=== PATIENT | female | born 1950 | race Hispanic/Latino ===

== ENCOUNTER 2021-09-14 15:52 | Emergency (ER) | payer OTHER, MEDICARE ==
[~2021-09-14] VITALS: Ht 147.3 cm; Wt 70.3 kg
[2021-09-14] MEDS ORDERED: ACETAMINOPHEN WITH CODEINE 1 TAB TAB PO ONE (19:15)
[2021-09-14] MEDS ORDERED: NIRM1TAB PO (19:22)
[2021-09-14] MEDS ORDERED: D-ME1POW16 PO (19:22)
[2021-09-14 19:38] VITALS: BP 139/75
== END 2021-09-14 19:40 | disposition home or self-care (01) ==
LOC: EDH 15:52
DX: U07.1 COVID-19 (principal); J06.9 Acute upper respiratory infection, unspecified; E11.9 Type 2 diabetes mellitus without complications
CPT/HCPCS: 71045; 87635; 99284; C9803

== ENCOUNTER → 2022-06-24 | Outpatient (CLI) | payer OTHER, MEDICARE ==
[~2022-06-24] MED LIST: D-ME1POW16 PO; NIRM1TAB PO
[2022-06-24 12:39] LABS: ALBUMIN 3.7 g/dL (3.5-5.0); CREATININE 1.5 mg/dL (0.5-1.5); POTASSIUM 4.2 mmol/L (3.5-5.1); TOTAL PROTEIN, SERUM 8.9 g/dL (6.0-8.3)
== END | disposition home or self-care (01) ==
LOC: LAB 11:33
PROVIDERS: ATTEND Student in an Organized Health Care Education/Training Program
DX: R07.9 Chest pain, unspecified (principal)
CPT/HCPCS: 36415; 80053

== ENCOUNTER → 2022-09-20 | Outpatient (CLI) | payer OTHER, MEDICARE ==
[~2022-09-20] MED LIST changes: +ALBU6.7H14 IH
[2022-09-20 12:47] LABS: CREATININE 1.1 mg/dL (0.5-1.5); POTASSIUM 4.2 mmol/L (3.5-5.1)
== END | disposition home or self-care (01) ==
LOC: LAB 08:29
PROVIDERS: ATTEND Student in an Organized Health Care Education/Training Program
DX: I10 Essential (primary) hypertension (principal)
CPT/HCPCS: 36415; 80048

== ENCOUNTER → 2022-09-23 | Outpatient (CLI) | payer OTHER, MEDICARE ==
[~2022-09-23] MED LIST changes: +IOHEXOL 350 MG/ML 100ML INFUS..BTL IV ONE; +METOPROLOL TARTRATE 1 MG/ML 5ML VIAL IV ONE
== END | disposition home or self-care (01) ==
LOC: RAH 08:27
PROVIDERS: ATTEND Student in an Organized Health Care Education/Training Program
DX: R07.9 Chest pain, unspecified (principal)
CPT/HCPCS: 75574; J3490 ×2; Q9967